=== PATIENT | female | born 1990 | race African-American/Black ===

== ENCOUNTER 2017-07-05 23:07 | Emergency (ER) | payer MEDICAID ==
[~2017-07-05] VITALS: Ht 170.2 cm; Wt 56.7 kg
[2017-07-06 00:18] LABS: Urine Bacteria FEW /hpf (None Seen); Urine Blood Negative /uL (Negative); Urine Mucus FEW (None Seen); Urine WBC 33 /hpf (0 - 5)
[2017-07-06 00:57] VITALS: BP 102/63
[2017-07-06] MEDS ORDERED: cefTRIAXone SOD 1,000 MG VL IM ONE (01:00)
[2017-07-06] MEDS ORDERED: AZITHROMYCIN 250 MG TAB PO ONE (01:00)
== END 2017-07-06 01:39 | disposition home or self-care (01) ==
LOC: ER 23:10
DX: N76.0 Acute vaginitis (principal)
CPT/HCPCS: 81001; 96372; 99283; J0696

== ENCOUNTER 2018-07-19 06:48 | Emergency (ER) | payer SELFPAY ==
[~2018-07-19] VITALS: Ht 170.2 cm; Wt 56.7 kg
[2018-07-19 07:31] VITALS: BP 109/67
[2018-07-19] MEDS ORDERED: LIDOCAINE 1% HCL (LOCAL ANESTH.) INJ 20ML MDV ONE (08:24)
[2018-07-19] MEDS ORDERED: LIDOCAINE 1% HCL (LOCAL ANESTH.) INJ 20ML MDV IJ ONE (08:30)
== END 2018-07-19 08:50 | disposition home or self-care (01) ==
LOC: ER 06:52
DX: S51.812A Laceration without foreign body of left forearm, initial encounter (principal); W26.9XXA Contact with unspecified sharp object(s), initial encounter; Y93.89 Activity, other specified; Y99.8 Other external cause status; Y92.89 Other specified places as the place of occurrence of the external cause
CPT/HCPCS: 12002; 73090; 99283; J2001